=== PATIENT | male | born 1955 | race African-American/Black ===

== ENCOUNTER 2023-01-01 07:30 | Outpatient (REF) | payer OTHER, MEDICARE, SELFPAY ==
--- NOTE | ~2023-01-01 | XR_ITS ---
EXAMINATION: XR SHOULDER, LEFT CLINICAL INFORMATION: Reason for Exam M25.519 - Pain in unspecified shoulder COMPARISON: None TECHNIQUE: Three views of the shoulder. FINDINGS: No acute fracture or dislocation. Moderate degenerative changes of the shoulder, predominantly involving the acromioclavicular joint where there is loss of joint space and degenerative spurring. Soft tissues are unremarkable. XR/XR shoulder LT min 2V IMPRESSION: Moderate degenerative changes of the shoulder, predominantly involving the acromioclavicular joint.
== END 2023-01-01 07:31 | disposition home or self-care (01) ==
LOC: HO.HOSX 07:30
PROVIDERS: Visit Provider Physician Assistant
DX: M75.102 Unspecified rotator cuff tear or rupture of left shoulder, not specified as traumatic (principal)
CPT/HCPCS: 20610; 73030; J1040

== ENCOUNTER 2023-04-02 12:37 | Outpatient (AMB) | payer OTHER, MEDICARE, SELFPAY ==
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
[2023-04-02 12:48] VITALS: BP 128/82; PULSE 76; BMI 36.4
== END 2023-04-02 13:16 | disposition home or self-care (01) ==
PROVIDERS: PCP Internal Medicine; Referring Provider Internal Medicine; Visit Provider Internal Medicine Cardiovascular Disease
DX: I44.7 Left bundle-branch block, unspecified (principal); I10 Essential (primary) hypertension
CPT/HCPCS: 99204

== ENCOUNTER → 2023-04-02 12:37 | Outpatient (BNVA) | payer OTHER, MEDICARE, SELFPAY | PROVIDERS: PCP Internal Medicine; Referring Provider Internal Medicine; Visit Provider Internal Medicine Cardiovascular Disease ==

== ENCOUNTER 2023-04-18 14:23 | Outpatient (AMB) | payer OTHER, MEDICARE, SELFPAY ==
[2023-04-18 15:05] VITALS: BMI 36.3
--- NOTE | 2023-04-18 15:05 | MHC.OFFVIS ---
Intake Vital Signs 04/18/23 15:05 Height 5 ft 10 in Weight 253 lb BMI 36.3 Intake Visit Reasons: OV-Left shoulder pain LAST INJ 01/01/23 Intake Note: gRonndontrell 67 yr old mal epresents today S/P left shoulder injection from 01/01/23. States injection helped and would like to repeat injection today. Allergies No Known Allergies Allergy (Verified 04/18/23 15:19) HPI OV-Left shoulder pain LAST INJ 01/01/23 HPI Details 67-year-old male who presents in the office today for a follow up of left shoulder pain. The patient had a cortisone injection in the left shoulder on 01/01/2023, which gave him relief. He would like to repeat the injection while in the office today. [facility] Medical History HTN (hypertension) Social History Alcohol intake: former Patient Tobacco Use Status: Former Tobacco user Current occupational status: retired Current occupation: right hand dominant Review of Systems Const All systems reviewed & are unremarkable except as noted in HPI and below Physical Exam Vital Signs: BMI result Body Mass Index 36.3 Const General: cooperative, healthy appearing and no acute distress Resp Effort & Inspection: normal respiratory effort and able to speak in complete sentences Cardio Rate: regular rate Peripheral pulses: Peripheral pulses 2+ throughout GI Palpation (GI): Soft to palpation Skin Lesions: no lesions Rashes: no rashes Extrem Other: Left shoulder: Forward flexion to end range. Abduction to 90 degrees. Negative drop arm. 4/5 strength with empty can. Pain with cross-body reach. NVI. Office Procedures Joint Injection/Drain Joint Injection/Drain Primary Site: left shoulder Prep: site was prepped using aseptic technique, ethochloride spray was applied and injection warnings given Injected: 80 mg of, DepoMedrol, with 8 mL of (2% plain lido ) and in the subcromial space Approach Used: posterolateral Procedure: The patient tolerated the procedure well, but had some pain with the injection and there was some relief with the local anesthesia Coding 33551 - Large joint Procedure code (CPT) selection complete Results Reviewed Results Reviewed: 04/18/23 15:08 Lidocaine HCl 2 % MPF [Xylocaine 2 % MPF] 5 ml .ROUTE .STK-MED ONE methylPREDNISolone acetate [DEPO-MedroL] 80 mg .ROUTE .STK-MED ONE Assessment & Plan Assessment & Plan (1) Painful arc syndrome of left shoulder: Code(s): M75.102 - Unspecified rotator cuff tear or rupture of left shoulder, not specified as traumatic Plan Mr. Desir is a 67-year-old male who presents in the office today for a follow up of left shoulder pain. The patient had a cortisone injection in the left shoulder on 01/01/2023, which gave him relief. He would like to repeat the injection while in the office today. The patient was offered a cortisone injection in the left shoulder with 80 mg of DepoMedrol. The patient was explained the risk, benefits, and alternatives to receiving this injection. After receiving consent for the injection, the patient had the procedure done while in office today. The patient tolerated the procedure well with no complications. Follow up will be PRN, or sooner if needed. Patient Instructions: Scribed for Johnna Roche PA-C by Veronica Espinoza medical education specialist, on 04/18/2023 at 2:46 pm, EST. Coding Level of Care Code Est Pt Level 3 (36205) Diagnoses Painful arc syndrome of left shoulder M75.102 CPT Codes Coding - 64121 Large joint: 33197 - Large joint ([id number])
== END 2023-04-18 15:19 | disposition home or self-care (01) ==
PROVIDERS: PCP Internal Medicine; Visit Provider Physician Assistant
DX: M75.102 Unspecified rotator cuff tear or rupture of left shoulder, not specified as traumatic (principal)
CPT/HCPCS: 20610; 99213

== ENCOUNTER → 2023-04-18 14:23 | Outpatient (BNVA) | payer OTHER, MEDICARE, SELFPAY | PROVIDERS: PCP Internal Medicine; Visit Provider Physician Assistant | DX: M75.102 Unspecified rotator cuff tear or rupture of left shoulder, not specified as traumatic (principal) | CPT/HCPCS: 20610; J1040 ==

== ENCOUNTER → 2023-05-10 08:41 | Outpatient (REF) | payer OTHER, SELFPAY ==
--- NOTE | ~2023-05-10 | NM_ITS ---
Myocardial perfusion study Indication: Left bundle branch block to evaluate for myocardial ischemia Technique: The patient was brought in for a Lexiscan perfusion study on the 2022. Patient performed low-level exercise and was injected 0.4 mg of Lexiscan intravenously. Within a minute of injection, 25 mCi of sestamibi was given intravenously. Images were obtained using the SPECT gamma camera interlaced with the gating device. Images were obtained in supine position. Resting perfusion study was not performed as patient refused to return. Images obtained with and without CT attenuation. Total DLP 77 mGy-cm Images were processed with the software and compared side to side in short axis, horizontal long axis and vertical long axis views. Findings: The stress perfusion study showed non attenuated images show mildly reduced uptake in the distal septum and the apex of the LV myocardium. Attenuated corrected images show mildly reduced uptake in the distal septum and apex of the LV myocardium. The gated study shows reduced LV systolic function with calculated LVEF of 39%. LV cavity is normal size. The gated study shows diffuse reduced wall thickening and contraction of segments. Resting study was not performed as patient refused. The findings are consistent with mild intensity distal septal and apical defect of unclear significance. Ischemia cannot be entirely ruled out. Could be related to the bundle branch block. NM/NM carla perf SPECT rest or str Impression: 1. Myocardial perfusion imaging study shows mild intensity distal anterior and apical defect 2. Gated LVEF is 39% 3. Transient ischemic dilatation not assessed EKG is Nondiagnostic for ischemia
--- NOTE | 2023-05-10 08:50 | CA_ITS ---
Transthoracic Echocardiogram Patient (Last, First, Middle): Cristopher Desir, Gender: Male Date of : 1955 Age: 67 Procedure Date: 05/10/2023 Procedure Type: Transthoracic Echocardiogram Location: OP Height: 177.8 cm Weight: 113.4 kg BSA: 2.29 m2 Heart Rate: bpm BP: 128 / 80 mmHg Pigment Pumper: Referring MD: Jonathan Crawley MD Symptoms: I44.7 - Left bundle-branch block, unspecified Study Quality: Fair with Contrast ECG Rhythm: Sinus, LBBB Conclusions: - Normal left ventricular size and systolic function. There is mildly increased left ventricular wall thickness. The visually estimated ejection fraction is between 55-60%. - Mildly increased right ventricular cavity size. There is normal right ventricular systolic function. - There is mild dilatation of the ascending aorta measuring 3.90 cm. Findings Procedure Information Contrast agent, definity, is being given per protocol without apparent complications. Left Ventricle Normal left ventricular size and systolic function. There is mildly increased left ventricular wall thickness. The visually estimated ejection fraction is between 55-60%. There is no evidence of regional wall motion abnormalities. There is paradoxical septal motion consistent with a left bundle branch block. Diastolic function is indeterminate on the basis of available data. Right Ventricle Mildly increased right ventricular cavity size. There is normal right ventricular systolic function. Atria The left atrium is mildly dilated. Aortic Valve The aortic valve was not well visualized. There is no aortic valve stenosis. There is trace (trivial) aortic valve regurgitation. Mitral Valve The mitral valve appears normal. There is trace mitral valve regurgitation. There is no mitral valve stenosis. Pulmonic Valve Normal pulmonic valve structure and function. There is no pulmonic valve regurgitation. Tricuspid Valve Normal tricuspid valve structure and function. Normal right atrial pressure. There is no evidence of pulmonary hypertension. Great Vessels There is mild dilatation of the ascending aorta measuring 3.90 cm. The visualized portions of the pulmonary artery and branches are normal. Venous The inferior vena cava is normal in size and collapses greater than 50% with inspiration. Pericardium/Pleural There is no evidence of pericardial effusion. Prior Study Comparison No prior study available for comparison. Measurements 2D Linear Measurements IVSd: 1.07 0.6-0.9/0.6-1.0 cm LVIDd: 4.86 3.9-5.3/4.2-5.9 cm LVIDd Index: 2.12 2.4-3.2/2.2-3.1 cm/m2 LVIDs: 3.37 2.0-3.6 cm LVPWd: 1.05 0.7-1.1 cm Ao Root: 3.50 2.1-3.5 cm LA Diam: 3.60 2.7-3.8/3.0-4.0 cm LAIDs Index: 1.57 1.5-2.3 cm/m2 LV Mass: 234.29 67-162/88-224 g LV Mass Index: 102.31 43-95/49-115 g/m2 LVOT Diam: 2.20 3.0+(-)1.3 cm 2D Systolic Function EF 4C: 58.80 >55% EF 2C: 47.60 >55% EF BiP: 53.40 >55% Mitral Valve MV Pk E: 0.55 MV PK A: 0.60 MV Decel Time: 113.00 E/A: 0.90 E'Lateral: 3.26 E'Medial: 4.35 E/E' Med: 12.70 E/E' Lat: 17.00 PHT: 33.00 MVA PHT: 6.67 Decel Cecil: 4.91 Aortic Valve AoV Pk Chilo: 1.41 AoV Mn Chilo: 0.95 AoV VTI: 0.27 AoV Pk Grad: 8.00 Aov Mn Grad: 4.00 HARINDER Cont.VTI: 2.58 LVOT LVOT Pk Chilo: 0.88 LVOT Mn Chilo: 0.58 LVOT VTI: 0.18 LVOT Pk Grad: 3.00 LVOT Mn Grad: 2.00 LVOT Diam: 2.20 LVOT Area: 3.80 Diastolic Function MV Pk E: 0.55 MV Pk A: 0.60 E/A: 0.90 E'Medial: 4.35 E/E' Med: 12.70 E' Laterial: 3.26 E/E' Lat: 17.00 Right Ventricle TAPSE (mm): 32.00 TVS' Chilo: 14.00 Tricuspid Valve TR Pk Chilo: 1.86 TR Pk Grad: 14.00 RA Press: 3.00 RVSP: 17.00 Great Vessels Aorta Ao Root-2D: 3.50 2.0-3.7 cm Ao Asc: 3.90 2.1-3.4 cm Pulmonary Valve PV Pk Chilo: 1.09 Peak PV Grad: 5.00 Updated in Other Vendor System with Status of Final Dejuan Hamilton MD electronically signed on 05/12/2023 9:09:30 PM with status of Final
--- NOTE | 2023-05-10 08:50 | CA_ITS ---
Acquisition Time: 2023-05-10 10:16:01 Total Exercise Time: 00:02:00 Test Indications: ABN EKG Medications: LOSARTAN/HCTZ METOP[ROLOL ROSUVASTATIN Protocol: LEXISCAN Max HR: 103 BPM 66% of Pred: 154 BPM Max BP: 130/076 mmHG Max Work Load: 1.0 METS Pharmacological stress test with Lexiscan injection while sitting, without anginal symptoms, without arrhytmias, with normotensive repsonse to injection, with nondiagnoistic EKGs. Aminophylline 75mg IVP given to reversse Lexiscan. Nuclear images pending. Test reviewed with Dr. Hamilton. Referred By: Jonathan Crawley Overread By: Amalia Vigil
== END ==
LOC: HO.CARD 08:41
PROVIDERS: PCP Internal Medicine; Visit Provider Internal Medicine Cardiovascular Disease
DX: I44.7 Left bundle-branch block, unspecified (principal)
CPT/HCPCS: 78451; 93017; 93306; A9500; J0280; J2785; Q9957

== ENCOUNTER → 2023-05-10 08:50 | Outpatient (BNV) | payer OTHER, SELFPAY | PROVIDERS: PCP Internal Medicine; Visit Provider Internal Medicine Cardiovascular Disease | DX: I44.7 Left bundle-branch block, unspecified (principal); R94.31 Abnormal electrocardiogram [ECG] [EKG] | CPT/HCPCS: 93016; 93018; 93306 ==

== ENCOUNTER 2024-06-23 08:06 | Outpatient (AMB) | payer MEDICARE, SELFPAY ==
[2024-06-23 08:42] VITALS: BP 122/68; PULSE 75; O2SAT 91; BMI 37.9
--- NOTE | 2024-06-23 08:42 | MHC.OFFVIS ---
Vital Signs 06/23/24 08:42 Height 5 ft 9 in Weight 256 lb 13.416 oz BMI 37.9 BP 122/68 Blood Pressure Location Rt brachial Position Sitting Pulse 75 Pulse Source Doppler Pulse Oximetry (%) 91 L Oxygen Delivery Method Room Air Intake Visit Reasons: hypoxemia Allergies No Known Allergies Allergy (Verified 06/23/24 08:48) HPI HPI hypoxemia: Details: 68-year-old gentleman, former 40+ pack-year smoker, quit 2019 referred for evaluation of chronic nonproductive cough ongoing for the last 6-7 months that shows no changes with body position or time of day, of food intake, and also dyspnea on exertion when walking up the stairs or hills. Patient denies prior personal or family history of lung disease. He denies exposure to industrial dusts. [facility] Medical History HTN (hypertension) Social History (Updated 06/23/24 @ 08:49 by TOBY Chaney) Alcohol intake: former Patient Tobacco Use Status: Former Tobacco user Years Smoked: quit 5-6 years ago, started at age 17, 1PPD Current occupational status: retired Current occupation: right hand dominant Review of Systems Const Denies daytime sleepiness, Denies excessive sweating, Denies fatigue, Denies fever(s), Denies lethargy, Denies malaise, Denies night sweats, Denies snoring and Denies weight loss Eyes Denies blurry vision and Denies itchy eyes ENT Denies nasal congestion, Denies post nasal drip, Denies sinus pain, Denies sinus pressure and Denies other ( Thrush) Card Denies chest pain, Denies pedal edema, Denies dyspnea, Reports dyspnea on exertion, Denies orthopnea and Denies paroxysmal nocturnal dyspnea Resp Reports cough, Denies hemoptysis, Denies excessive phlegm production, Denies dyspnea, Reports dyspnea on exertion, Denies snoring and Denies wheezing GI Denies abdominal pain and Denies heartburn Musc Denies myalgias, Denies arthralgias and Denies joint swelling Skin/Breast Denies rash Neuro Denies memory loss and Denies seizure-like activity Psych Denies abnormal sleep pattern, Denies anxiety and Denies memory loss Endo Denies excessive sweating, Denies fatigue and Denies heat intolerance Terrell/Lymph Denies easy bruising Aller/Immun Denies itchy eyes, Denies seasonal rhinorrhea and Denies wheezing Physical Exam Vital Signs: Last Vital Signs Pulse 75 06/23/24 08:42 BP 122/68 06/23/24 08:42 Pulse Ox 91 L 06/23/24 08:42 Oxygen Delivery Method Room Air 06/23/24 08:42 BMI result Body Mass Index 37.9 Const General: no acute distress and alert Nutritional Appearance: not obese Orientation/consciousness: Other orientation findings ( oriented) HEENT Head: Yes atraumatic Eyes General: appearance normal, both eyes and all related structures Sclerae: sclerae normal EOM: EOMs intact bilaterally Neck Neck: Yes supple Lymphatic: no lymphadenopathy noted Resp Effort & Inspection: normal respiratory effort and no use of accessory muscles Auscultation: clear to auscultation bilaterally Cardio Rate: regular rate Rhythm: regular rhythm Heart sounds: no gallops, no murmurs and no rubs Skin General skin exam: other ( warm) Extrem General: No clubbing, No cyanosis and No edema Assessment & Plan Assessment & Plan (1) Dyspnea on exertion: Code(s): R06.09 - Other forms of dyspnea Category: Medical Plan: Unclear etiology, may have pulmonary and/or cardiac component. Will obtain full PFT and 2D echocardiogram for initial evaluation. Will start on empiric albuterol MDI. (2) Cough: Code(s): R05.9 - Cough, unspecified Category: Medical Plan: Does have a GERD component currently using Tums. Will start on PPI and await results of PFT. (3) Personal history of nicotine dependence: Code(s): Z87.891 - Personal history of nicotine dependence Category: Medical Plan: Will obtain lung cancer screening CT chest. Orders: Orders CA echo transthoracic complete Today R06.09 - Other forms of dyspnea CT lung screening Today Z87.891 - Personal history of nicotine dependence PFT pulmonary function test Today R06.09 - Other forms of dyspnea Medications: New omeprazole 40 mg PO DAILY 30 caps 6RF albuterol sulfate 90 mcg/actuation 2 puffs inhalation Q4-6H PRN 1 ea 6RF shortness of breath or wheezing Coding Level of Care Code New Pt Level 4 (58357) Diagnoses Dyspnea on exertion R06.09 Cough R05.9 Personal history of nicotine dependence Z87.891
== END 2024-06-23 09:02 | disposition home or self-care (01) ==
PROVIDERS: PCP Internal Medicine; Visit Provider Internal Medicine Pulmonary Disease
DX: R06.09 Other forms of dyspnea (principal); R05.9 Cough, unspecified; Z87.891 Personal history of nicotine dependence
CPT/HCPCS: 99204

== ENCOUNTER → 2024-06-23 08:06 | Outpatient (BNVA) | payer MEDICARE, SELFPAY | PROVIDERS: PCP Internal Medicine; Visit Provider Internal Medicine Pulmonary Disease | DX: R09.02 Hypoxemia (principal); R06.09 Other forms of dyspnea; R05.9 Cough, unspecified; Z87.891 Personal history of nicotine dependence | CPT/HCPCS: 99202 ==

== ENCOUNTER → 2024-07-16 12:37 | Outpatient (REF) | payer MEDICARE, SELFPAY ==
--- NOTE | 2024-07-16 12:41 | CA_ITS ---
Transthoracic Echocardiogram Patient (Last, First, Middle): Cristopher Desir, Gender: Male Date of : 1955 Age: 68 Procedure Date: 07/16/2024 Procedure Type: Transthoracic Echocardiogram Location: OP Height: 175.26 cm Weight: 117. kg BSA: 2.30 m2 Heart Rate: 74 bpm BP: 110 / 64 mmHg Behavioral Assistant: SB Referring MD: Tyrone Rubi MD Symptoms: R06.09 - Other forms of dyspnea Study Quality: Adequate w contrast ECG Rhythm: Sinus Conclusions: - The left ventricular systolic function is mildly decreased. The visually estimated ejection fraction is between 45-50%. - Mild pulmonary hypertension is present. - No obvious valvular pathology seen on this study. Findings Procedure Information Contrast agent, definity, is being given per protocol without apparent complications. The quality of the study was technically difficult. The study quality is limited by patients body habitus. Left Ventricle Normal left ventricular cavity size. There is normal left ventricular wall thickness. The left ventricular systolic function is mildly decreased. The visually estimated ejection fraction is between 45-50%. There is paradoxical septal motion consistent with a left bundle branch block. Evidence suggests grade I (mild) diastolic dysfunction. Right Ventricle Moderately increased right ventricular cavity size. There is normal right ventricular systolic function. Atria Both atria are normal in size. Aortic Valve There is a normal trileaflet aortic valve. There is no aortic valve stenosis. There is trace (trivial) aortic valve regurgitation. Mitral Valve The mitral valve appears normal. There is trace mitral valve regurgitation. There is no mitral valve stenosis. Pulmonic Valve The pulmonic valve is likely normal. Tricuspid Valve Normal tricuspid valve structure. There is trace tricuspid valve regurgitation. Mild pulmonary hypertension is present. Great Vessels The asc aorta is normal in size. Venous The inferior vena cava was not well visualized. The inferior vena cava collapses greater than 50% with inspiration. Pericardium/Pleural There is no evidence of pericardial effusion. Prior Study Comparison No significant change compared to prior study dated: 05/10/2023. On image comparison, no significant change. Recommendations, Care & Conclusions No obvious valvular pathology seen on this study. Measurements 2D Linear Measurements IVSd: 0.96 0.6-0.9/0.6-1.0 cm LVIDd: 5.65 3.9-5.3/4.2-5.9 cm LVIDd Index: 2.46 2.4-3.2/2.2-3.1 cm/m2 LVIDs: 4.32 2.0-3.6 cm LVPWd: 0.71 0.7-1.1 cm LA Diam: 4.20 2.7-3.8/3.0-4.0 cm LAIDs Index: 1.83 1.5-2.3 cm/m2 LV Mass: 220.84 67-162/88-224 g LV Mass Index: 96.02 43-95/49-115 g/m2 LVOT Diam: 2.40 3.0+(-)1.3 cm 2D Systolic Function EF 4C: 57.40 >55% EF 2C: 56.20 >55% EF BiP: 56.60 >55% Mitral Valve MV Pk E: 0.69 MV PK A: 0.62 MV Decel Time: 178.00 E/A: 1.10 E'Lateral: 7.51 E'Medial: 4.35 E/E' Med: 15.80 E/E' Lat: 9.10 PHT: 52.00 MVA PHT: 4.23 Decel Cross: 3.86 Aortic Valve AoV Pk Chilo: 1.42 AoV Pk Grad: 8.00 HARINDER: 3.40 LVOT LVOT Pk Chilo: 1.01 LVOT Mn Chilo: 0.67 LVOT VTI: 0.19 LVOT Pk Grad: 4.00 LVOT Mn Grad: 3.00 LVOT Diam: 2.40 LVOT Area: 4.52 Diastolic Function MV Pk E: 0.69 MV Pk A: 0.62 E/A: 1.10 E'Medial: 4.35 E/E' Med: 15.80 E' Laterial: 7.51 E/E' Lat: 9.10 Right Ventricle TAPSE (mm): 22.40 TVS' Chilo: 13.70 Tricuspid Valve TR Pk Chilo: 2.96 TR Pk Grad: 35.00 RA Press: 3.00 RVSP: 38.00 Great Vessels Aorta Sinus of Valsalva: 3.60 2.0-3.5 cm Ao Asc: 3.90 2.1-3.4 cm Pulmonary Veins Pulm Vein S/D 1.30 Pulmonary Valve PV Pk Chilo: 1.01 Peak PV Grad: 4.00 Updated in Other Vendor System with Status of Final Devendra Metz MD electronically signed on 07/18/2024 12:37:31 PM with status of Final
== END ==
LOC: HO.CARD 12:37
PROVIDERS: PCP Internal Medicine; Visit Provider Internal Medicine Pulmonary Disease
DX: R06.09 Other forms of dyspnea (principal)
CPT/HCPCS: 93306; Q9957

== ENCOUNTER → 2024-07-16 12:41 | Outpatient (BNV) | payer MEDICARE, SELFPAY | PROVIDERS: PCP Internal Medicine; Visit Provider Internal Medicine | DX: I27.20 Pulmonary hypertension, unspecified (principal); I51.89 Other ill-defined heart diseases | CPT/HCPCS: 93306 ==

== ENCOUNTER 2024-07-18 10:55 | Outpatient (REF) | payer MEDICARE, SELFPAY ==
[2024-07-18 10:16] VITALS: PULSE 85; O2SAT 97
--- NOTE | 2024-07-18 11:00 | PFT_ITS ---
Flows: FEV1: 67 % of predicted at 2.13 L FVC: 83 % of predicted at 3.46 L FEV1/FVC: 62 % Bronchodilator response: Present Volumes: Patient unable to perform lung volumes maneuvers. Diffusion capacity: Moderately decreased, adjusts to being mildly decreased after correction for alveolar ventilation. Impression: Moderate obstructive ventilatory defect with positive bronchodilator response. Patient unable to perform lung volumes maneuvers. Decreased diffusion capacity suggests emphysema. MTDD
== END 2024-07-18 10:56 | disposition home or self-care (01) ==
LOC: HO.RESP 10:55
PROVIDERS: PCP Internal Medicine; Visit Provider Hospitalist
DX: R06.09 Other forms of dyspnea (principal)
CPT/HCPCS: 94010; 94640; 94727; 94729

== ENCOUNTER 2024-07-23 11:20 | Outpatient (AMB) | payer MEDICARE, SELFPAY ==
[2024-07-23 11:22] VITALS: BP 112/62; PULSE 83; O2SAT 93; BMI 37.9
--- NOTE | 2024-07-23 11:22 | A.OFFVIS_ITS ---
Vital Signs 07/23/24 11:22 Height 5 ft 9 in Weight 257 lb BMI 37.9 BP 112/62 Blood Pressure Location Lt brachial Position Sitting Pulse 83 Pulse Source Doppler Pulse Oximetry (%) 93 Oxygen Delivery Method Room Air Intake Visit Reasons: Hypoxemia Allergies No Known Allergies Allergy (Verified 07/23/24 11:24) HPI HPI Hypoxemia: Details: 68-year-old gentleman, former 40+ pack-year smoker, quit 2019 referred for evaluation of chronic nonproductive cough ongoing for the last 6-7 months that shows no changes with body position or time of day, of food intake, and also dyspnea on exertion when walking up the stairs or hills. Patient denies prior personal or family history of lung disease. He denies exposure to industrial dusts. After the last office visit patient had pulmonary function tests showed underlying moderate COPD, and also 2D echo demonstrated combined systolic and diastolic dysfunction. His CT scan is pending. He denies acute exacerbations. [facility] Medical History HTN (hypertension) Social History (Updated 06/23/24 @ 08:49 by Isis Pavon [facility]) Alcohol intake: former Patient Tobacco Use Status: Former Tobacco user Years Smoked: quit 5-6 years ago, started at age 17, 1PPD Current occupational status: retired Current occupation: right hand dominant Review of Systems Const Denies daytime sleepiness, Denies excessive sweating, Denies fatigue, Denies fever(s), Denies lethargy, Denies malaise, Denies night sweats, Denies snoring and Denies weight loss Eyes Denies blurry vision and Denies itchy eyes ENT Denies nasal congestion, Denies post nasal drip, Denies sinus pain, Denies sinus pressure and Denies other ( Thrush) Card Denies chest pain, Denies pedal edema, Denies dyspnea, Denies orthopnea and Denies paroxysmal nocturnal dyspnea Resp Denies cough, Denies hemoptysis, Denies excessive phlegm production, Denies dyspnea, Denies snoring and Denies wheezing GI Denies abdominal pain and Denies heartburn Musc Denies myalgias, Denies arthralgias and Denies joint swelling Skin/Breast Denies rash Neuro Denies memory loss and Denies seizure-like activity Psych Denies abnormal sleep pattern, Denies anxiety and Denies memory loss Endo Denies excessive sweating, Denies fatigue and Denies heat intolerance Terrell/Lymph Denies easy bruising Aller/Immun Denies itchy eyes, Denies seasonal rhinorrhea and Denies wheezing Physical Exam Vital Signs: Last Vital Signs Pulse 83 07/23/24 11:22 BP 112/62 07/23/24 11:22 Pulse Ox 93 07/23/24 11:22 Oxygen Delivery Method Room Air 07/23/24 11:22 BMI result Body Mass Index 37.9 Const General: no acute distress and alert Nutritional Appearance: obese Orientation/consciousness: Other orientation findings ( oriented) HEENT Head: Yes atraumatic Eyes General: appearance normal, both eyes and all related structures Sclerae: sclerae normal EOM: EOMs intact bilaterally Neck Neck: Yes supple Lymphatic: no lymphadenopathy noted Resp Effort & Inspection: normal respiratory effort and no use of accessory muscles Auscultation: clear to auscultation bilaterally Cardio Rate: regular rate Rhythm: regular rhythm Heart sounds: no gallops, no murmurs and no rubs Skin General skin exam: other ( warm) Extrem General: No clubbing, No cyanosis and No edema Assessment & Plan Assessment & Plan (1) Dyspnea on exertion: Code(s): R06.09 - Other forms of dyspnea Category: Medical Plan: Multifactorial with contribution from underlying pulmonary and cardiac etiologies. Results of 2D echocardiogram reviewed, underlying combined systolic and diastolic dysfunction. Will refer to Cardiology. (2) COPD (chronic obstructive pulmonary disease): Code(s): J44.9 - Chronic obstructive pulmonary disease, unspecified Category: Medical Plan: Results of pulmonary function test reviewed, underlying moderate COPD suboptimally controlled on albuterol MDI. Will add Anoro. (3) Personal history of nicotine dependence: Code(s): Z87.891 - Personal history of nicotine dependence Category: Medical Plan: Lung cancer screening CT chest is pending. Orders: Referrals Cardiology Referral R06.09 - Other forms of dyspnea Medications: New umeclidinium-vilanterol 62.5-25 mcg/actuation (Anoro Ellipta) 1 inh inhalation DAILY 1 ea 6RF Coding Level of Care Code Est Pt Level 4 (63834) Complex EM visit Add On G2211 Diagnoses Dyspnea on exertion R06.09 COPD (chronic obstructive pulmonary disease) J44.9 Personal history of nicotine dependence Z87.891
== END 2024-07-23 11:40 | disposition home or self-care (01) ==
PROVIDERS: PCP Internal Medicine; Visit Provider Internal Medicine Pulmonary Disease
DX: R06.09 Other forms of dyspnea (principal); J44.9 Chronic obstructive pulmonary disease, unspecified; Z87.891 Personal history of nicotine dependence
CPT/HCPCS: 99214; G2211

== ENCOUNTER → 2024-07-23 11:20 | Outpatient (BNVA) | payer MEDICARE, SELFPAY | PROVIDERS: PCP Internal Medicine; Visit Provider Internal Medicine Pulmonary Disease | DX: J44.9 Chronic obstructive pulmonary disease, unspecified (principal); R06.09 Other forms of dyspnea; Z87.891 Personal history of nicotine dependence | CPT/HCPCS: 99212 ==

== ENCOUNTER 2024-08-20 10:43 | Outpatient (REF) | payer MEDICARE, SELFPAY ==
[2024-08-20 12:05] LABS: Alanine Aminotransferase 33 U/L (0-40); Albumin Level 4.4 g/dL (3.5-5.0); Alkaline Phosphatase 54 U/L (39-117); Anion Gap 9 (12-20); Aspartate Amino Transferase 33 U/L (5-37); Bilirubin Total 0.6 mg/dL (0.0-1.0); Blood Urea Nitrogen 14 mg/dL (9-16); Calcium 9.7 mg/dL (8.4-10.2); Carbon Dioxide 32 mmol/L (22-29); Chloride 105 mmol/L (96-108); Cholesterol 130 mg/dL (<200); Estimated Glomerular Filt Rate > 60; Glucose Random 106 mg/dL (60-115); HDL Cholesterol 35 mg/dL (>40); LDL Cholesterol Calculated 77 mg/dL (<100); Sodium 142 mmol/L (135-145); Total Protein 7.6 g/dL (6.5-8.0); Triglycerides 93 mg/dL (<150)
[2024-08-20 12:19] LABS: Vitamin B12 243 pg/mL (200-900)
== END 2024-08-20 10:44 | disposition home or self-care (01) ==
LOC: HO.10HDL 10:43
PROVIDERS: Visit Provider Internal Medicine
DX: E78.00 Pure hypercholesterolemia, unspecified (principal); I10 Essential (primary) hypertension; I42.9 Cardiomyopathy, unspecified; J44.9 Chronic obstructive pulmonary disease, unspecified; R09.02 Hypoxemia
CPT/HCPCS: 36415; 80053; 80061; 82607

== ENCOUNTER → 2024-09-03 11:12 | Outpatient (BNVA) | payer MEDICARE, SELFPAY | PROVIDERS: PCP Internal Medicine; Visit Provider Internal Medicine Pulmonary Disease | DX: J44.9 Chronic obstructive pulmonary disease, unspecified (principal); R06.09 Other forms of dyspnea; Z87.891 Personal history of nicotine dependence | CPT/HCPCS: 99212 ==

== ENCOUNTER 2024-11-18 12:42 | Outpatient (REF) | payer MEDICARE, SELFPAY ==
[2024-11-18 13:23] LABS: MANUAL DIFF FLAG NO
[2024-11-18 13:53] LABS: Basophils Absolute Auto 0.1 X10*3/uL (0.0-0.2); Basophils Percent Auto 0.8 % (0-2); Eosinophils Absolute Auto 0.2 X10*3/uL (0.0-0.4); Eosinophils Percent Auto 2.6 % (0-4); Hematocrit 47.2 % (42.0-52.0); Hemoglobin 15.2 g/dl (14.0-18.0); Imm Gran Abs Auto 0.03 X10*3/uL (0.00-0.03); Imm Gran Pct Auto 0.4 % (0.0-0.4); Lymphocytes Absolute Auto 1.8 X10*3/uL (1.2-4.9); Mean Corpuscular HGB Conc 32.2 g/dl (31.0-36.0); Mean Corpuscular Volume 90.1 fL (80.0-98.0); Mean Platelet Volume 10.1 fL (9.4-12.4); Monocytes Absolute Auto 0.9 X10*3/uL (0.1-1.2); Monocytes Percent Auto 11.9 % (2-11); Neutrophils Absolute Auto 4.3 x10*3/uL (2.0-8.3); Neutrophils Percent Auto 59.3 % (45-73); Platelet Count 221 X10*3/uL (160-400); Red Blood Count 5.24 X10*6/uL (4.60-5.80); Red Cell Distribution Width 13.5 % (11.0-16.0); White Blood Count 7.3 X10*3/uL (4.8-10.8)
[2024-11-18 14:07] LABS: Alanine Aminotransferase 44 U/L (0-40); Albumin Level 4.6 g/dL (3.5-5.0); Alkaline Phosphatase 52 U/L (39-117); Anion Gap 9 (12-20); Aspartate Amino Transferase 34 U/L (5-37); Bilirubin Total 0.4 mg/dL (0.0-1.0); Blood Urea Nitrogen 19 mg/dL (9-16); Calcium 9.9 mg/dL (8.4-10.2); Carbon Dioxide 31 mmol/L (22-29); Chloride 103 mmol/L (96-108); Cholesterol 149 mg/dL (<200); Estimated Glomerular Filt Rate > 60; Glucose Random 100 mg/dL (60-115); HDL Cholesterol 38 mg/dL (>40); LDL Cholesterol Calculated 93 mg/dL (<100); Potassium 3.9 mmol/L (3.3-5.1); Sodium 139 mmol/L (135-145); Total Protein 7.6 g/dL (6.5-8.0); Triglycerides 92 mg/dL (<150)
== END 2024-11-18 12:43 | disposition home or self-care (01) ==
LOC: HO.10HDL 12:42
PROVIDERS: Visit Provider Internal Medicine
DX: E78.00 Pure hypercholesterolemia, unspecified (principal); G47.33 Obstructive sleep apnea (adult) (pediatric); I43 Cardiomyopathy in diseases classified elsewhere; R09.02 Hypoxemia
CPT/HCPCS: 36415; 80053; 80061; 85025

== ENCOUNTER 2024-12-01 10:07 | Outpatient (REF) | payer MEDICARE, SELFPAY ==
--- NOTE | ~2024-12-01 | XR_ITS ---
CLINICAL HISTORY: ABDOMEN PAIN Exam: Supine abdominal radiograph. Comparison: None. Findings: Moderate stool throughout the colon. Mild air-filled distention of the large and small bowel. Small bowel measures up to 3.0 cm with areas of small-bowel wall thickening within the central abdomen. Colon is distended to 6.7 cm. No differential dilatation between large and small bowel is seen to suggest obstruction. No indirect evidence for free air on this supine exam. Lung bases are clear. Degenerative change throughout the visualized thoracolumbar spine. Impression: Moderate colonic stool with findings suggestive of diffuse ileus. This document has been electronically signed by: Sony Montelongo MD on 12/02/2024 06:53:28
[2024-12-01 12:49] LABS: Prostate Specific Antigen Scr 15.52 ng/mL (<0.05-4.0)
[2024-12-01 14:17] LABS: Alanine Aminotransferase 32 U/L (0-40); Albumin Level 4.4 g/dL (3.5-5.0); Anion Gap 16 (12-20); Aspartate Amino Transferase 35 U/L (5-37); Bilirubin Total 0.5 mg/dL (0.0-1.0); Blood Urea Nitrogen 21 mg/dL (9-16); Calcium 9.4 mg/dL (8.4-10.2); Carbon Dioxide 27 mmol/L (22-29); Chloride 98 mmol/L (96-108); Cholesterol 133 mg/dL (<200); Estimated Glomerular Filt Rate > 60; Glucose Random 106 mg/dL (60-115); HDL Cholesterol 32 mg/dL (>40); LDL Cholesterol Calculated 85 mg/dL (<100); Potassium 3.8 mmol/L (3.3-5.1); Sodium 137 mmol/L (135-145); Total Protein 7.5 g/dL (6.5-8.0); Triglycerides 84 mg/dL (<150)
[2024-12-01 18:05] LABS: Alkaline Phosphatase 52 U/L (39-117)
== END 2024-12-01 10:08 | disposition home or self-care (01) ==
LOC: HO.10HDL 10:07
PROVIDERS: PCP Internal Medicine; Visit Provider Internal Medicine
DX: Z12.6 Encounter for screening for malignant neoplasm of bladder (principal); R10.9 Unspecified abdominal pain; Z12.5 Encounter for screening for malignant neoplasm of prostate; Z13.6 Encounter for screening for cardiovascular disorders
CPT/HCPCS: 36415; 74018; 80053; 80061; 83735; 84153

== ENCOUNTER → 2024-12-01 10:35 | Outpatient (BNV) | payer MEDICARE, SELFPAY | PROVIDERS: PCP Internal Medicine; Visit Provider Radiology Diagnostic Radiology | DX: R10.9 Unspecified abdominal pain (principal) | CPT/HCPCS: 74018 ==

== ENCOUNTER 2024-12-29 09:48 | Outpatient (AMB) | payer MEDICARE, SELFPAY ==
[2024-12-29 09:50] VITALS: BP 118/68; PULSE 77; BMI 38.1
--- NOTE | 2024-12-29 09:50 | MHC.OFFVIS ---
Vital Signs 12/29/24 09:50 Height 5 ft 9 in Weight 257 lb 15.053 oz BMI 38.1 BP 118/68 Blood Pressure Location Lt brachial Position Sitting Pulse 77 Intake Visit Reasons: New systolic/diastolic dysfunction Intake Note: New systolic/diastolic dysfunction patient stating feeling the same sometimes palpiations Neon Technician Required: No Child Care Provider: Child Care Provider Present Accompanied by: Spouse Allergies No Known Allergies Allergy (Verified 07/23/24 11:24) Medication List - Last Reconciled 12/29/24 by Jonathan Crawley MD albuterol sulfate 90 mcg/actuation 2 puffs inhalation Q4-6H PRN fluoride (sodium) 1.1% PO BID losartan-hydrochlorothiazide 100-25 mg 1 tab PO DAILY metoprolol succinate ER 50 mg PO DAILY omeprazole 40 mg PO DAILY rosuvastatin 10 mg PO DAILY umeclidinium-vilanterol 62.5-25 mcg/actuation (Anoro Ellipta) 1 inh inhalation DAILY HPI Comments Details: Cristopher comes for follow-up as recent echocardiogram showed worsening LV ejection fraction with LVEF 45-50% which is lower than before. He does not report any new symptoms although appears a little confused about overall his symptoms. He denies any symptoms of orthopnea, PND, leg edema. Continues to have exertional shortness of breath. Denies any exertional chest pain. Denies any prolonged palpitation irregular heartbeat. No lightheadedness, syncope. Takes all his medications. Says blood pressure is well controlled at current point in time. [facility] Medical History HTN (hypertension) Social History Alcohol intake: former Patient Tobacco Use Status: Former Tobacco user Years Smoked: quit 5-6 years ago, started at age 17, 1PPD Current occupational status: retired Current occupation: right hand dominant Review of Systems Const Denies chills, Denies fatigue, Denies fever(s), Denies frequent falls, Denies weakness, Denies weight gain and Denies weight loss ENT Denies dizziness Card Denies chest pain, Denies leg edema, Denies lightheadedness, Denies palpitations, Denies dyspnea, Denies dyspnea on exertion, Denies orthopnea and Denies other (loss of consciousness) Resp Denies cough, Denies dyspnea and Denies dyspnea on exertion GI Denies hematochezia and Denies change in stool character Musc Denies abnormal gait, Denies muscle weakness, Denies numbness, Denies radiating pain into limb and Denies tingling Neuro Denies Abnormal speech present, Denies abnormal gait, Denies dizziness, Denies frequent falls, Denies numbness, Denies tingling and Denies weakness Endo Denies fatigue and Denies palpitations Physical Exam Vital Signs: Last Vital Signs Pulse 77 12/29/24 09:50 BP 118/68 12/29/24 09:50 BMI result Body Mass Index 38.1 Const General: cooperative, comfortable, no acute distress, alert and awake Nutritional Appearance: well nourished and obese Orientation/consciousness: patient oriented x3 Limitations: no limitations HEENT Head: Yes normocephalic and Yes atraumatic Neck Neck: Yes trachea midline, Yes supple and Yes no JVD Resp Effort & Inspection: normal respiratory effort Auscultation: clear to auscultation bilaterally Cardio Jugular venous distension: no JVD Palpation: normal PMI Rate: regular rate Rhythm: regular rhythm Heart sounds: S1 normal heart sound present, S2 normal heart sound present, no click, no gallops, no murmurs and no rubs GI Auscultation: normal bowel sounds Skin General skin exam: no rashes or lesions noted Neuro General: patient oriented x3 and no focal motor deficits Speech: No Abnormal speech present Extrem General: Yes no clubbing, cyanosis or edema Psych Appearance: grossly normal Assessment & Plan Assessment & Plan (1) Cardiomyopathy: Code(s): I42.9 - Cardiomyopathy, unspecified Category: Medical Plan: Mild cardiomyopathy process in this elderly gentleman with left bundle-branch block. He had a myocardial perfusion imaging which had shown fixed distal apical anterior defect which could have been probably related to left bundle-branch block. He has no anginal sounding chest discomfort although given his risk factors obstructive CAD needs to be ruled out as this will exchange underwriting consultant plan. Would suggest a coronary CTA to further assess for the same. It is possible that he is developing cardiomyopathy process related to left bundle-branch block and will need serial follow-up echocardiogram see if he does not have any significant coronary artery disease. He is currently on neurohormonal modulation with metoprolol as losartan which has been used for blood pressure control and will continue the same. He has no signs or symptoms of heart failure. These were discussed with him. Advised to call me with any new symptoms. Will follow up in the clinic otherwise in 1 year's time after an echocardiogram. Thank you for allowing me to partake in his care Orders: Orders CT Cardiac Coronary Angio 1 Week I42.9 - Cardiomyopathy, unspecified Basic Metabolic Panel Today I42.9 - Cardiomyopathy, unspecified Coding Level of Care Code Est Pt Level 4 (69198) Complex EM visit Add On G2211 Diagnoses Cardiomyopathy I42.9
== END 2024-12-29 10:18 | disposition home or self-care (01) ==
LOC: HO.HCS 09:48
PROVIDERS: PCP Internal Medicine; Visit Provider Internal Medicine Cardiovascular Disease
DX: I42.9 Cardiomyopathy, unspecified (principal)
CPT/HCPCS: 93010; 99214; G2211

== ENCOUNTER → 2024-12-29 09:48 | Outpatient (BNVA) | payer MEDICARE, SELFPAY | PROVIDERS: PCP Internal Medicine; Visit Provider Internal Medicine Cardiovascular Disease | DX: I42.9 Cardiomyopathy, unspecified (principal); R94.31 Abnormal electrocardiogram [ECG] [EKG]; I44.7 Left bundle-branch block, unspecified | CPT/HCPCS: 93005; 99212 ==

== ENCOUNTER 2024-12-31 11:02 | Outpatient (AMB) | payer MEDICARE, SELFPAY ==
--- NOTE | 2024-12-31 11:03 | MHC.OFFVIS ---
Intake Visit Reasons: elevated PSA Intake Note: Patient is present for ELEVATED PSA Urology Medication:NONE Antibiotic Allergy:NONE Blood Thinner:NONE Spring Fitter Helper Required: No Allergies No Known Allergies Allergy (Verified 12/31/24 11:04) HPI Comments Details: Cristopher is a pleasant male. He is a patient of Dr. Raya. He seen for the following urologic conditions - elevated PSA Elevated PSA PSA 15.5 Minimal voiding symptoms, minimal nocturia, bladder emptying No family history SHAHID 2+ difficult exam Repeat PSA Plan possible prostate biopsy [facility] Medical History HTN (hypertension) Social History Alcohol intake: former Patient Tobacco Use Status: Former Tobacco user Years Smoked: quit 5-6 years ago, started at age 17, 1PPD Current occupational status: retired Current occupation: right hand dominant Review of Systems Const Denies chills and Denies fever(s) Card Reports no additional complaints and Denies syncope Resp Denies cough GI Denies abdominal pain and Denies heartburn Reports as per HPI and Denies change in libido Neuro Denies syncope Psych Denies change in libido Endo Denies change in libido Physical Exam Const General: cooperative, healthy appearing, comfortable and no acute distress Orientation/consciousness: patient oriented x3 HEENT Face and sinus: Yes normal facial exam Mouth: moist mucous membranes Neck Neck: Yes normal visual inspection, Yes full ROM and Yes trachea midline Chest Chest palpation & inspection: normal inspection of the chest Resp Effort & Inspection: normal respiratory effort, able to speak in complete sentences and no respiratory distress GI Inspection: Yes normal to inspection Rectal Exam - Male: Yes normal sphincter tone and Yes prostate normal Male General Exam: Yes normal external exam Penis: normal penis and circumcised Meatus: meatus normal Scrotum: scrotum normal Testes: Testes normal Back/Spine/Pelvis Cervical Spine: normal cervical lordosis Thoracic/Lumbar Spine: thoracic and lumbar spine normal to inspection Skin General skin exam: no rashes or lesions noted Neuro General: patient oriented x3, gait normal, tone normal and moves all extremities Extrem General: Yes normal to inspection and Yes capillary refill normal Results AMB Urinalysis, Automated UA Leukoctes 0 Kathy/uL Last Edit by BARBARA Centeno on 12/31/24 11:18 UA Nitrite Negative Last Edit by [facility] on 12/31/24 11:18 UA Urobilinogen 0.2 mg/dL Last Edit by BARBARA Centeno on 12/31/24 11:18 UA Protein 0 mg/dL Last Edit by BARBARA Centeno on 12/31/24 11:18 UA pH 6.0 Last Edit by Hiram Barnes [facility] on 12/31/24 11:18 UA Blood 25 Leonardo/uL Last Edit by Hiram Barnes [facility] on 12/31/24 11:18 UA Specific [place] 1.015 Last Edit by Hiram Barnes [facility] on 12/31/24 11:18 UA Ketone Negative Last Edit by Hiram Barnes [facility] on 12/31/24 11:18 UA Bilirubin 0 mg/dL Last Edit by Hir[facility] on 12/31/24 11:18 UA Glucose 1000 mg/dL Last Edit by Hiram Barnes [facility] on 12/31/24 11:18 Results Reviewed Results Reviewed: Laboratory Last Values Urine pH (Auto) 6.0 12/31/24 11:17 Specific [place] (Auto) 1.015 12/31/24 11:17 Urine Protein (Auto) 0 mg/dL 12/31/24 11:17 Glucose (UA)(Auto) 1000 mg/dL 12/31/24 11:17 Urine Ketones (Auto) Negative 12/31/24 11:17 Urine Blood (Auto) 25 Leonardo/uL 12/31/24 11:17 Urine Nitrite (Auto) Negative 12/31/24 11:17 Urine Bilirubin (Auto) 0 mg/dL 12/31/24 11:17 Urine Urobilinogen (Auto) 0.2 mg/dL 12/31/24 11:17 Leukocyte Esterase (Auto) 0 Kathy/uL 12/31/24 11:17 Assessment & Plan Assessment & Plan (1) Elevated PSA: Code(s): R97.20 - Elevated prostate specific antigen [PSA] Category: Medical Plan PSA now PSA three-month Orders: Orders AMB Urinalysis Automated Today Z13.9 - Encounter for screening, unspecified PSA,Total (Free>4and<10) Today R97.20 - Elevated prostate specific antigen [PSA] PSA,Total (Free>4and<10) 3 Months R97.20 - Elevated prostate specific antigen [PSA] Patient Instructions: This note is constructed using voice recognition software. While every effort has been made to ensure accuracy cyber defense forensics analyst errors may have been included. Imaging studies, laboratory and physical exam results were discussed and reviewed in detail. No major barriers to patient understanding were identified. An opportunity to ask questions regarding the treatment plan was provided. All questions were answered. The patient expressed understanding and agreement with the above treatment plan. The patient is aware they should contact our office by phone for worsening of their current condition or the appearance of new urologic symptoms. Compliance is encouraged with any medications and followup testing that is ordered. It is a privilege to participate in the urologic care of your patient. If you have any questions or concerns regarding treatment for the above conditions, or other urologic issues, please do not hesitate to contact me. The office telephone contact is [phone]. Sincerely, Dr Mohamud Navarrete MD, [facility] - Urology Compassionate Specialist Care for the Genitourinary System Coding Level of Care Code New Pt Level 3 (05907) Diagnoses Elevated PSA R97.20
== END 2024-12-31 11:43 | disposition home or self-care (01) ==
LOC: HO.HUSH 11:02
PROVIDERS: PCP Internal Medicine; Visit Provider Urology
DX: Z13.9 Encounter for screening, unspecified (principal); R97.20 Elevated prostate specific antigen [PSA]
CPT/HCPCS: 99203

== ENCOUNTER 2024-12-31 12:05 | Outpatient (REF) | payer MEDICARE, SELFPAY ==
[2024-12-31 13:56] LABS: PSA,Total (Free>4and<10) 1.46 ng/mL (0.00-4.00)
== END 2024-12-31 12:06 | disposition home or self-care (01) ==
LOC: HO.10HDL 12:05
PROVIDERS: Visit Provider Urology
DX: R97.20 Elevated prostate specific antigen [PSA] (principal); Z12.5 Encounter for screening for malignant neoplasm of prostate; Z13.9 Encounter for screening, unspecified
CPT/HCPCS: 36415; 81003; 84153; 99202

== ENCOUNTER 2025-03-09 12:19 | Outpatient (REF) | payer MEDICARE, SELFPAY ==
[2025-03-09 13:48] LABS: Alanine Aminotransferase 52 U/L (0-40); Albumin Level 4.8 g/dL (3.5-5.0); Alkaline Phosphatase 53 U/L (39-117); Anion Gap 14 (12-20); Aspartate Amino Transferase 46 U/L (5-37); Blood Urea Nitrogen 20 mg/dL (9-16); Calcium 9.5 mg/dL (8.4-10.2); Carbon Dioxide 28 mmol/L (22-29); Chloride 103 mmol/L (96-108); Cholesterol 143 mg/dL (<200); Estimated Glomerular Filt Rate > 60; HDL Cholesterol 39 mg/dL (>40); Potassium 3.8 mmol/L (3.3-5.1); Sodium 141 mmol/L (135-145); Total Protein 7.5 g/dL (6.5-8.0); Triglycerides 76 mg/dL (<150)
[2025-03-09 13:58] LABS: PSA,Total (Free>4and<10) 1.32 ng/mL (0.00-4.00)
[2025-03-09 14:06] LABS: Vitamin B12 200 pg/mL (200-900)
== END 2025-03-09 12:20 | disposition home or self-care (01) ==
LOC: HO.10HDL 12:19
PROVIDERS: Internal Medicine; Visit Provider Urology
DX: Z12.5 Encounter for screening for malignant neoplasm of prostate (principal); E78.00 Pure hypercholesterolemia, unspecified; G47.33 Obstructive sleep apnea (adult) (pediatric); I10 Essential (primary) hypertension; R41.89 Other symptoms and signs involving cognitive functions and awareness; R97.20 Elevated prostate specific antigen [PSA]; E66.01 Morbid (severe) obesity due to excess calories
CPT/HCPCS: 36415; 80053; 80061; 82607; 84153

== ENCOUNTER 2025-04-01 09:50 | Outpatient (AMB) | payer MEDICARE, SELFPAY ==
--- NOTE | 2025-04-01 09:49 | A.OFFVIS_ITS ---
Intake Visit Reasons: 3m follow up/ pSA Intake Note: Patient is present for 3 MO follow up Urology Medication:NONE Antibiotic Allergy:NONE Blood Thinner:NONE Labs done 03/09/2025 : PSA 1.32 Director Housekeeping Required: No Accompanied by: Self / Same As Patient Allergies No Known Allergies Allergy (Verified 04/01/25 09:49) HPI Comments Details: Cristopher is a pleasant male. He is a patient of Dr. Raya. He seen for the following urologic conditions - elevated PSA PSA has dropped like a stone Prior elevation likely prostatitis related Repeat in six-month to review stability If stable would move to yearly Elevated PSA PSA 12/20 15.5, 03/22 1.3 Minimal voiding symptoms, minimal nocturia, bladder emptying No family history SHAHID 2+ difficult exam PFSH Medical History HTN (hypertension) Social History Alcohol intake: former Patient Tobacco Use Status: Former Tobacco user Years Smoked: quit 5-6 years ago, started at age 17, 1PPD Current occupational status: retired Current occupation: right hand dominant Review of Systems Const Denies chills and Denies fever(s) Card Reports no additional complaints and Denies syncope Resp Denies cough GI Denies abdominal pain and Denies heartburn Reports as per HPI and Denies change in libido Neuro Denies syncope Psych Denies change in libido Endo Denies change in libido Physical Exam Const General: cooperative, healthy appearing, comfortable and no acute distress Orientation/consciousness: patient oriented x3 HEENT Face and sinus: Yes normal facial exam Mouth: moist mucous membranes Neck Neck: Yes normal visual inspection, Yes full ROM and Yes trachea midline Chest Chest palpation & inspection: normal inspection of the chest Resp Effort & Inspection: normal respiratory effort, able to speak in complete sentences and no respiratory distress GI Inspection: Yes normal to inspection Back/Spine/Pelvis Cervical Spine: normal cervical lordosis Thoracic/Lumbar Spine: thoracic and lumbar spine normal to inspection Skin General skin exam: no rashes or lesions noted Neuro General: patient oriented x3, gait normal, tone normal and moves all extremities Extrem General: Yes normal to inspection and Yes capillary refill normal Assessment & Plan Assessment & Plan (1) Elevated PSA: Code(s): R97.20 - Elevated prostate specific antigen [PSA] Category: Medical Plan Six-month follow-up PSA Orders: Orders Prostate Specific Antigen 6 Months R97.20 - Elevated prostate specific antigen [PSA] Patient Instructions: This note is constructed using voice recognition software. While every effort has been made to ensure accuracy licensed loan officer errors may have been included. Imaging studies, laboratory and physical exam results were discussed and reviewed in detail. No major barriers to patient understanding were identified. An opportunity to ask questions regarding the treatment plan was provided. All questions were answered. The patient expressed understanding and agreement with the above treatment plan. The patient is aware they should contact our office by phone for worsening of their current condition or the appearance of new urologic symptoms. Compliance is encouraged with any medications and followup testing that is ordered. It is a privilege to participate in the urologic care of your patient. If you have any questions or concerns regarding treatment for the above conditions, or other urologic issues, please do not hesitate to contact me. The office telephone contact is [phone]. Sincerely, Dr Mohamud Navarrete MD, [facility] - Urology Compassionate Specialist Care for the Genitourinary System Coding Level of Care Code Est Pt Level 3 (51739) Diagnoses Elevated PSA R97.20
== END 2025-04-01 10:05 | disposition home or self-care (01) ==
LOC: HO.HUSH 09:50
PROVIDERS: PCP Internal Medicine; Visit Provider Urology
DX: R97.20 Elevated prostate specific antigen [PSA] (principal)
CPT/HCPCS: 99213

== ENCOUNTER → 2025-04-01 09:50 | Outpatient (BNVA) | payer MEDICARE, SELFPAY | PROVIDERS: PCP Internal Medicine; Visit Provider Urology | DX: R97.20 Elevated prostate specific antigen [PSA] (principal) | CPT/HCPCS: 99212 ==